=== PATIENT | male | born 1995 | race Two or more races ===

== ENCOUNTER 2020-02-03 02:02 | Emergency (ER) | payer OTHER ==
[~2020-02-03] VITALS: Ht 182.9 cm; Wt 58.1 kg
[2020-02-03 02:08] VITALS: BP_SYST 140
[2020-02-03] MEDS ORDERED: LIDOCAINE 1% 10 MG/ML, 20 ML MDV INJ ONE (02:45)
[2020-02-03] MEDS ORDERED: LIDOCAINE 1%, 20 ML MDV 20 ML ONE (02:56)
[2020-02-03] MEDS ORDERED: DIPH-TET-PERTUS Vaccine 0.5 ML VIAL (ADACEL) I.M. ONE (03:15)
[2020-02-03] MEDS ORDERED: ACETAMINOPHEN 325 MG TABLET PO ONE (03:15)
[2020-02-03] MEDS ORDERED: BACITRACIN ZINC 15 GM TOPICAL OINTMENT TP ONE (03:30)
[2020-02-03 03:40] VITALS: BP_SYST 136
[2020-02-03] MEDS ORDERED: BACITRACIN 1 GM OINT TP ONE (03:47)
== END 2020-02-03 03:40 | disposition home or self-care (01) ==
LOC: SED 02:02
DX: S61.411A Laceration without foreign body of right hand, initial encounter (principal); W25.XXXA Contact with sharp glass, initial encounter; Y93.G1 Activity, food preparation and clean up; Y92.89 Other specified places as the place of occurrence of the external cause; Y99.8 Other external cause status
CPT/HCPCS: 12001; 73130; 90471; 90715; 99283; J2001